=== PATIENT | female | born 1940 | race American Indian/Alaskan Native ===

== ENCOUNTER 2021-01-23 13:29 | Emergency (ER) | payer MEDICARE ==
[2021-01-23] MEDS ORDERED: SODIUM CHLORIDE 0.9% 1000 ML 1,000 ML IV ONE (13:34)
--- NOTE | 2021-01-23 14:03 | Emergency Department Report ---
ED Chest Pain HPI - General Stated Complaint: CHEST PAIN Time Seen by Provider: 01/23/21 13:33 Source: patient, family, EMS Limitations: No Limitations - History of Present Illness Initial Comments: Chief complaint: Chest pain not feeling like herself HPI: This is a 80-year-old female who presents via EMS with chest pain. Patient currently denies chest pain. Daughter called because she was not "feeling like herself". Patient just feels generally unwell. Spoke with daughter per phone at [phone] Daughters tell me that her mother appeared hydrated. She complained of chest pain. She was not eating or drinking. She was too weak to walk. She also had mild irritation and stomach pain. Daughter wanted her to be admitted for observation overnight. PCP Dr. Caroline Brown MD Complaint: chest pain -: Gradual, days(s) (1) Onset: during rest Pain Location: substernal Pain Radiation: none Severity: mild Quality: dull Consistency: now resolved Improves With: nothing Worsens With: nothing - Related Data Allergies Allergy/AdvReac Type Severity Reaction Status Date / Time No Known Allergies Allergy Unverified 01/23/21 14:13 Heart Score - HEART Score History: Slightly suspicious EKG: Normal Age: > 65 Risk factors: 1-2 risk factors Troponin: < normal limit HEART Score: 3 - EKG Read Time Time EKG Completed: 14:00 EKG Read Time: 14:00 ED Review of Systems ROS: Stated complaint: CHEST PAIN Other details as noted in HPI Comment: All other systems reviewed and negative Constitutional: malaise. denies: fever Respiratory: denies: cough, shortness of breath Cardiovascular: denies: chest pain Gastrointestinal: denies: abdominal pain, nausea, vomiting ED Past Medical Hx - Past Medical History Previous Medical History?: Yes ED Physical Exam - General Limitations: No Limitations General appearance: alert, in no apparent distress - Head Head exam: Present: atraumatic, normocephalic - Eye Eye exam: Present: normal appearance - ENT ENT exam: Present: mucous membranes moist - Neck Neck exam: Present: normal inspection, full ROM - Respiratory Respiratory exam: Present: normal lung sounds bilaterally. Absent: respiratory distress, wheezes, rales, rhonchi - Cardiovascular Cardiovascular Exam: Present: regular rate, normal rhythm, normal heart sounds. Absent: systolic murmur, diastolic murmur, rubs, gallop - GI/Abdominal GI/Abdominal exam: Present: soft, normal bowel sounds. Absent: distended, tenderness, guarding, rebound - Extremities Exam Extremities exam: Present: normal inspection - Neurological Exam Neurological exam: Present: alert, oriented X3 - Psychiatric Psychiatric exam: Present: depressed, flat affect - Skin Skin exam: Present: warm, dry, intact, normal color. Absent: rash ED Course Vital Signs 01/23/21 01/23/21 01/23/21 13:44 13:45 14:00 Temperature Pulse Rate 60 60 Respiratory 13 11 L Rate Blood Pressure 142/92 142/92 131/88 Blood Pressure [Right] O2 Sat by Pulse Oximetry 01/23/21 01/23/21 01/23/21 14:14 14:16 14:21 Temperature 98.2 F Pulse Rate 60 60 60 Respiratory 13 12 Rate Blood Pressure 135/88 131/88 Blood Pressure 135/88 [Right] O2 Sat by Pulse 97 98 Oximetry 01/23/21 01/23/21 01/23/21 14:30 14:46 15:00 Temperature Pulse Rate 60 60 60 Respiratory 12 Rate Blood Pressure 131/88 131/88 131/88 Blood Pressure [Right] O2 Sat by Pulse 99 94 97 Oximetry 01/23/21 01/23/21 01/23/21 15:16 15:30 15:45 Temperature Pulse Rate 60 60 60 Respiratory 10 L 9 L 9 L Rate Blood Pressure 131/88 136/94 149/89 Blood Pressure [Right] O2 Sat by Pulse 97 85 99 Oximetry 01/23/21 01/23/21 01/23/21 16:00 16:15 16:30 Temperature Pulse Rate 60 60 60 Respiratory 9 L 10 L 9 L Rate Blood Pressure 157/91 166/90 171/87 Blood Pressure [Right] O2 Sat by Pulse 99 96 99 Oximetry ED Medical Decision Making - Lab Data Result diagrams: 01/23/21 14:13 01/23/21 14:13 - EKG Data -: EKG Interpreted by Me - EKG Data 01/23/21 14:04 EKG obtained 1400 EKG interpreted by me Ventricular pacing rate [address] elevation nonischemic T wave pattern abnormal axis - Radiology Data Radiology results: report reviewed CT abdomen pelvis: Without contrast: No acute findings within the abdomen pelvis, moderate amount of calcific plaque throughout the abdominal aorta, diffuse diverticulosis - Medical Decision Making Ms. Oakley is a 80-year-old female who presents with generalized malaise for the last 2 days. Upon arrival she received 1 L IV fluid therapy. CBC within normal notes. Patient has known chronic kidney disease which is reflective in chemistry. Electrolytes unremarkable. Patient had urinalysis sent to lab. fuel storage technician was unable to find the specimen. However nurse informed me that the urine was clear without gross evidence of infection. Patient is ambulatory. She was able to get out of the bed without assistance. She was able to ambulate to the restroom without assistance. She did not have findings of thrush as was the daughter's concern. No indication of heart failure or acute coronary syndrome. I explained to the daughter that her medical condition did not meet criteria for or observation inpatient admission. [phone] Critical care attestation.: If time is entered above; I have spent that time in minutes in the direct care of this critically ill patient, excluding procedure time. ED Disposition Clinical Impression: Dehydration, GERD (gastroesophageal reflux disease), Hypertensive urgency Disposition: DC-01 TO HOME OR SELFCARE Is pt being admited?: No Does the pt Need Aspirin: No Condition: Stable Instructions: Indigestion, [id number], Dehydration, Elderly, [id number] Referrals: PRIMARY CARE, [Primary Care Provider] - 3-5 Days
--- NOTE | 2021-01-23 14:12 | XRay Report ---
CHEST 1 VIEW 01/23/2021 1:33 PM INDICATION / CLINICAL INFORMATION: Chest Pain. COMPARISON: None available. FINDINGS: SUPPORT DEVICES: A left ICD is in good position. HEART / MEDIASTINUM: Normal size of the cardiac silhouette with mild aortic atherosclerosis. LUNGS / PLEURA: Clear lungs. No significant pleural effusion. No pneumothorax. ADDITIONAL FINDINGS: No significant additional findings. IMPRESSION: 1. No acute abnormality of the chest. Signer Name: Frank Peoples MD Signed: 01/23/2021 2:04 PM Workstation Name: [id number]
[2021-01-23 14:39] LABS: Basophils % (Auto) 0.2 % (0.0-1.8); Hematocrit 36.7 % (30.3-42.9); Hemoglobin 11.5 gm/dl (10.1-14.3); Lymphocytes # (Auto) 1.5 K/mm3 (1.2-5.4); Lymphocytes % (Auto) 30.1 % (13.4-35.0); Mean Corpuscular HGB Conc 31 % (30-34); Mean Corpuscular Volume 93 fl (79-97); Monocytes # (Auto) 0.5 K/mm3 (0.0-0.8); Monocytes % (Auto) 9.2 % (0.0-7.3); Platelet Count 102 K/mm3 (140-440); Red Blood Count 3.93 M/mm3 (3.65-5.03)
[2021-01-23 15:09] LABS: Alanine Aminotransferase 10 units/L (7-56); Albumin 3.8 g/dL (3.9-5); BUN/Creatinine Ratio 17; Blood Urea Nitrogen 32 mg/dL (7-17); Calcium 8.8 mg/dL (8.4-10.2); Hemolysis Index 6
[2021-01-23 16:40] VITALS: BP 171/87
--- NOTE | 2021-01-23 19:28 | Cat Scan Report ---
CT abdomen pelvis wo con INDICATION / CLINICAL INFORMATION: abdominal pain. TECHNIQUE: Axial CT imaging of abdomen and pelvis was obtained without contrast. Coronal and sagittal reformatte d imaging obtained and reviewed. All CT scans at this location are performed using CT dose reduction for ALARA by means of automated exposure control. COMPARISON: None available. FINDINGS: CT abdomen without contrast demonstrates normal appearance of the liver, spleen, pancreas, kidneys, a nd adrenal glands. No intrarenal calculi or hydronephrosis identified. The gallbladder is not visuali zed and presumably has been removed. Moderate amount of calcified plaque is present throughout the ab dominal aorta and common iliac arteries. CT pelvis without contrast does not demonstrate any mass, free fluid, or focal inflammatory change. M ild sigmoid diverticulosis is present throughout the colon, without associated diverticulitis. The re mainder of the GI tract is unremarkable. The appendix is not visualized. No pulmonary or pleural disease noted in either visualized lung bases. Review of osseous structures does not demonstrate any acute significant skeletal abnormality. IMPRESSION: 1. No acute finding within the abdomen or pelvis. 2. Moderate amount of calcific plaque throughout the abdominal aorta and common iliac arteries. 3. Mild diffuse diverticulosis throughout the colon. Signer Name: Marge Koehler MD Signed: 01/23/2021 7:24 PM Workstation Name: [id number]
--- NOTE | 2021-01-24 09:37 | Electrocardiograph Report ---
[facility] Test Date: 2021-01-23 Test Time: 14:00:41 Pat Name: BIANCA GUZMAN Department: Room: Gender: F Battery Service Technician: ITZ : 1940 Requested By: ALINA CALVO Order Number: [id number] Reading MD: Oskar Galeana Measurements Intervals [place] Rate: 60 P: 0 GA: 74 QRS: -82 QRSD: 128 T: 59 QT: 453 QTc: 453 Interpretive Statements A-V dual-paced rhythm with some inhibition No previous ECG available for comparison Electronically Signed On 01-24-2021 9:37:27 EDT by Oskar Galeana
== END 2021-01-23 20:15 | disposition home or self-care (01) ==
LOC: ED 13:29
DX: K21.9 Gastro-esophageal reflux disease without esophagitis (principal); R10.9 Unspecified abdominal pain; E86.0 Dehydration; I16.0 Hypertensive urgency
CPT/HCPCS: 36415; 71045; 74176; 80053; 83880; 84484; 85025; 93005; 96360; 96361; 99285; J7030

== ENCOUNTER 2021-01-28 15:11 | Observation (INO) | payer MEDICARE ==
[2021-01-28 17:24] LABS: Basophils % (Auto) 0.4 % (0.0-1.8); Hematocrit 34.2 % (30.3-42.9); Lymphocytes # (Auto) 1.6 K/mm3 (1.2-5.4); Lymphocytes % (Auto) 29.9 % (13.4-35.0); Mean Corpuscular HGB Conc 32 % (30-34); Mean Corpuscular Volume 91 fl (79-97); Monocytes # (Auto) 0.6 K/mm3 (0.0-0.8); Monocytes % (Auto) 10.9 % (0.0-7.3); Platelet Count 129 K/mm3 (140-440); Red Blood Count 3.76 M/mm3 (3.65-5.03); Red Cell Distribution Width 16.9 % (13.2-15.2)
--- NOTE | 2021-01-28 17:25 | Emergency Department Report ---
ED General Adult HPI - General Chief complaint: Chest Pain Stated complaint: CHEST PAIN Time Seen by Provider: 01/28/21 16:02 Source: patient, EMS Mode of arrival: Stretcher Limitations: Altered Mental Status - History of Present Illness Initial comments: Patient presents to the emergency department via the request of her daughter due to the patient complaining of chest pain or shortness of breath. The patient is confused to why she is here that she cannot answer any questions appropriately. -: unknown Location: chest Severity scale (0 -10): 8 Consistency: constant Improves with: none Worsens with: none Associated Symptoms: denies other symptoms Treatments Prior to Arrival: none - Related Data Allergies Allergy/AdvReac Type Severity Reaction Status Date / Time No Known Allergies Allergy Unverified 01/23/21 14:13 ED Review of Systems ROS: Stated complaint: CHEST PAIN Other details as noted in HPI Comment: All other systems reviewed and negative Constitutional: denies: chills, fever Eyes: denies: eye pain, eye discharge, vision change ENT: denies: ear pain, throat pain Respiratory: denies: cough, shortness of breath, wheezing Cardiovascular: denies: chest pain, palpitations Endocrine: no symptoms reported Gastrointestinal: denies: abdominal pain, nausea, diarrhea Genitourinary: denies: urgency, dysuria, discharge Musculoskeletal: denies: back pain, joint swelling, arthralgia Skin: denies: rash, lesions Neurological: denies: headache, weakness, paresthesias Psychiatric: denies: anxiety, depression Hematological/Lymphatic: denies: easy bleeding, easy bruising ED Past Medical Hx - Past Medical History Hx Hypertension: Yes - Social History Smoking Status: Never Smoker ED Physical Exam - General Limitations: Altered Mental Status General appearance: alert, in no apparent distress - Head Head exam: Present: atraumatic, normocephalic - Eye Eye exam: Present: normal appearance, PERRL, EOMI - ENT ENT exam: Present: mucous membranes moist - Neck Neck exam: Present: normal inspection - Respiratory Respiratory exam: Present: normal lung sounds bilaterally. Absent: respiratory distress - Cardiovascular Cardiovascular Exam: Present: regular rate, normal rhythm. Absent: systolic murmur, diastolic murmur, rubs, gallop - GI/Abdominal GI/Abdominal exam: Present: soft, normal bowel sounds. Absent: distended, tenderness - Extremities Exam Extremities exam: Present: normal inspection - Back Exam Back exam: Present: normal inspection - Neurological Exam Neurological exam: Present: alert, oriented X3, CN II-XII intact. Absent: motor sensory deficit - Psychiatric Psychiatric exam: Present: normal affect, normal mood - Skin Skin exam: Present: warm, dry, intact, normal color. Absent: rash ED Course Vital Signs 01/28/21 01/28/21 01/28/21 15:22 15:30 15:42 Temperature 98.3 F Pulse Rate 60 60 60 Respiratory 13 10 L 16 Rate Blood Pressure 173/93 178/93 Blood Pressure [Right] O2 Sat by Pulse 99 100 99 Oximetry 01/28/21 01/28/21 01/28/21 15:45 15:46 16:00 Temperature Pulse Rate 60 60 60 Respiratory 13 11 L Rate Blood Pressure 169/87 168/90 Blood Pressure [Right] O2 Sat by Pulse 100 100 Oximetry 01/28/21 01/28/21 01/28/21 16:16 16:30 16:46 Temperature Pulse Rate 60 60 60 Respiratory 12 13 14 Rate Blood Pressure 171/87 173/86 167/118 Blood Pressure [Right] O2 Sat by Pulse 99 100 90 Oximetry 01/28/21 01/28/21 01/28/21 17:00 17:13 17:16 Temperature Pulse Rate 60 60 Respiratory 12 16 12 Rate Blood Pressure 156/87 157/88 Blood Pressure [Right] O2 Sat by Pulse 99 100 Oximetry 01/28/21 01/28/21 01/28/21 17:30 17:46 19:00 Temperature 98 F Pulse Rate 60 60 60 Respiratory 13 13 12 Rate Blood Pressure 152/84 159/84 Blood Pressure 159/87 [Right] O2 Sat by Pulse 99 99 100 Oximetry ED Medical Decision Making - Lab Data Result diagrams: 01/28/21 16:56 01/28/21 16:56 Lab Results 01/28/21 01/28/21 01/28/21 Range/Units 16:56 16:56 16:56 WBC 5.4 (4.5-11.0) K/mm3 RBC 3.76 (3.65-5.03) M/mm3 Hgb 11.0 (10.1-14.3) gm/dl Hct 34.2 (30.3-42.9) % MCV 91 (79-97) fl MCH 29 (28-32) pg MCHC 32 (30-34) % RDW 16.9 H (13.2-15.2) % Plt Count 129 L (140-440) K/mm3 Lymph % (Auto) 29.9 (13.4-35.0) % [place] % (Auto) 10.9 H (0.0-7.3) % Eos % (Auto) 0.0 (0.0-4.3) % Baso % (Auto) 0.4 (0.0-1.8) % Lymph # (Auto) 1.6 (1.2-5.4) K/mm3 [place] # (Auto) 0.6 (0.0-0.8) K/mm3 Eos # (Auto) 0.0 (0.0-0.4) K/mm3 Baso # (Auto) 0.0 (0.0-0.1) K/mm3 Seg Neutrophils % 58.8 (40.0-70.0) % Seg Neutrophils # 3.2 (1.8-7.7) K/mm3 PT 14.0 (12.2-14.9) Sec. INR 1.10 (0.87-1.13) APTT 37.7 H (24.2-36.6) Sec. Sodium (137-145) mmol/L Potassium (3.6-5.0) mmol/L Chloride (98-107) mmol/L Carbon Dioxide (22-30) mmol/L Anion Gap mmol/L BUN (7-17) mg/dL Creatinine (0.6-1.2) mg/dL Estimated GFR ml/min BUN/Creatinine Ratio % Glucose (65-100) mg/dL Calcium (8.4-10.2) mg/dL Total Bilirubin (0.1-1.2) mg/dL AST (5-40) units/L ALT (7-56) units/L Alkaline Phosphatase (35-129) units/L Troponin T (0.00-0.029) ng/mL Total Protein (6.3-8.2) g/dL Albumin (3.9-5) g/dL Albumin/Globulin Ratio % Lipase (13-60) units/L HCG, Qual Negative (Negative) Urine Color (Yellow) Urine Turbidity (Clear) Urine pH (5.0-7.0) Ur Specific [place] (1.003-1.030) Urine Protein (Negative) mg/dL Urine Glucose (UA) (Negative) mg/dL Urine Ketones (Negative) mg/dL Urine Blood (Negative) Urine Nitrite (Negative) Urine Bilirubin (Negative) Urine Urobilinogen (<2.0) mg/dL Ur Leukocyte Esterase (Negative) Urine WBC (Auto) (0.0-6.0) /HPF Urine RBC (Auto) (0.0-6.0) /HPF U Epithel Cells (Auto) (0-13.0) /HPF Urine Bacteria (Auto) (Negative) /HPF 01/28/21 01/28/21 Range/Units 16:56 18:18 WBC (4.5-11.0) K/mm3 RBC (3.65-5.03) M/mm3 Hgb (10.1-14.3) gm/dl Hct (30.3-42.9) % MCV (79-97) fl MCH (28-32) pg MCHC (30-34) % RDW (13.2-15.2) % Plt Count (140-440) K/mm3 Lymph % (Auto) (13.4-35.0) % [place] % (Auto) (0.0-7.3) % Eos % (Auto) (0.0-4.3) % Baso % (Auto) (0.0-1.8) % Lymph # (Auto) (1.2-5.4) K/mm3 [place] # (Auto) (0.0-0.8) K/mm3 Eos # (Auto) (0.0-0.4) K/mm3 Baso # (Auto) (0.0-0.1) K/mm3 Seg Neutrophils % (40.0-70.0) % Seg Neutrophils # (1.8-7.7) K/mm3 PT (12.2-14.9) Sec. INR (0.87-1.13) APTT (24.2-36.6) Sec. Sodium 141 (137-145) mmol/L Potassium 4.6 (3.6-5.0) mmol/L Chloride 111.2 H (98-107) mmol/L Carbon Dioxide 23 (22-30) mmol/L Anion Gap 11 mmol/L BUN 27 H (7-17) mg/dL Creatinine 1.7 H (0.6-1.2) mg/dL Estimated GFR 35 ml/min BUN/Creatinine Ratio 16 % Glucose 78 (65-100) mg/dL Calcium 8.5 (8.4-10.2) mg/dL Total Bilirubin 0.30 (0.1-1.2) mg/dL AST 18 (5-40) units/L ALT 9 (7-56) units/L Alkaline Phosphatase 66 (35-129) units/L Troponin T < 0.010 (0.00-0.029) ng/mL Total Protein 7.8 (6.3-8.2) g/dL Albumin 3.4 L (3.9-5) g/dL Albumin/Globulin Ratio 0.8 % Lipase 30 (13-60) units/L HCG, Qual (Negative) Urine Color Yellow (Yellow) Urine Turbidity Clear (Clear) Urine pH 5.0 (5.0-7.0) Ur Specific [place] 1.014 (1.003-1.030) Urine Protein <15 mg/dl (Negative) mg/dL Urine Glucose (UA) Neg (Negative) mg/dL Urine Ketones Neg (Negative) mg/dL Urine Blood Neg (Negative) Urine Nitrite Neg (Negative) Urine Bilirubin Neg (Negative) Urine Urobilinogen < 2.0 (<2.0) mg/dL Ur Leukocyte Esterase Tr (Negative) Urine WBC (Auto) 16.0 H (0.0-6.0) /HPF Urine RBC (Auto) 2.0 (0.0-6.0) /HPF U Epithel Cells (Auto) < 1.0 (0-13.0) /HPF Urine Bacteria (Auto) 1+ (Negative) /HPF - EKG Data -: EKG Interpreted by Ca - EKG Data Interpretation: other (Paced rhythm) - Radiology Data Radiology results: report reviewed - Medical Decision Making Attempt made to contact the patient's daughter x 3 Critical care attestation.: If time is entered above; I have spent that time in minutes in the direct care of this critically ill patient, excluding procedure time. ED Disposition Clinical Impression: Chest pain Disposition: DC09 OP ADMIT IP TO THIS HOSP Is pt being admited?: Yes Does the pt Need Aspirin: Yes Condition: Fair Referrals: PRIMARY CARE, [Primary Care Provider] - 3-5 Days
--- NOTE | 2021-01-28 17:25 | XRay Report ---
CHEST 1 VIEW 01/28/2021 4:14 PM INDICATION / CLINICAL INFORMATION: Chest Pain. COMPARISON: One view of the chest from 01/23/2021. FINDINGS: SUPPORT DEVICES: Unchanged. HEART / MEDIASTINUM: Stable. LUNGS / PLEURA: Clear lungs. No significant pleural effusion. No pneumothorax. ADDITIONAL FINDINGS: No significant additional findings. IMPRESSION: 1. No acute abnormality of the chest. Signer Name: Frank Peoples MD Signed: 01/28/2021 5:21 PM Workstation Name: [id number]
[2021-01-28 17:34] LABS: INR 1.1 (0.87-1.13)
[2021-01-28 17:35] LABS: Partial Thromboplastin Time 37.7 Sec. (24.2-36.6)
[2021-01-28 17:42] LABS: Alanine Aminotransferase 9 units/L (7-56); Albumin 3.4 g/dL (3.9-5); BUN/Creatinine Ratio 16; Blood Urea Nitrogen 27 mg/dL (7-17); Calcium 8.5 mg/dL (8.4-10.2); Hemolysis Index 11
[2021-01-28 18:32] LABS: Bacteria,Urine 1+ /HPF (Negative); Bilirubin,Urine NEG (Negative); Blood,Urine NEG (Negative); Color,Urine Yellow (Yellow); Protein,Urine <15 mg/dL mg/dL (Negative); Urobilinogen,Urine < 2.0 mg/dL (<2.0)
--- NOTE | 2021-01-28 19:48 | History and Physical Report ---
History of Present Illness Date of examination: 01/28/21 Date of admission: 01/28/21 Chief complaint: chest pain Shortness of breath History of present illness: Patient presents to the emergency department via the request of her daughter due to the patient complaining of chest pain or shortness of breath. The patient is confused to why she is here that she cannot answer any questions appropriately. ED work-up shows WBC 5.4, H&H 11.0, sodium 141, potassium 4.6, creatinine is 1.7, serum glucose 78 Lipase level 30, urine WBC elevated, platelet 129. Chest x-ray done no acute finding. Urine culture ordered follow-up with results. Patient seen at bedside. Patient alert oriented x1 and confused. Per patient medical record, patient was brought to the hospital because of complaint of chest pain and shortness of breath. At the time of assessment patient denied chest pain, shortness of breath, and headache. Patient said she had chest pain in the morning but not at the time of this assessment. Sausage Mixer is consulted echocardiogram ordered to rule out [place]. Medications and Allergies Allergies Allergy/AdvReac Type Severity Reaction Status Date / Time No Known Allergies Allergy Unverified 01/23/21 14:13 Review of Systems Constitutional: fatigue, weakness Ears, nose, mouth and throat: no epistaxis Breasts: no discharge Cardiovascular: chest pain Respiratory: shortness of breath Gastrointestinal: no abdominal pain Genitourinary Female: no dyspareunia Rectal: no itching Musculoskeletal: muscle weakness Integumentary: no growths, no bullae Neurological: weakness Psychiatric: anxiety, confusion Hematologic/Lymphatic: no easy bruising, no easy bleeding Allergic/Immunologic: no urticaria, no allergic rhinitis Exam - Constitutional Vitals: Temp Pulse Resp BP Pulse Ox 98 F 60 12 159/87 100 01/28/21 19:00 01/28/21 19:00 01/28/21 19:00 01/28/21 19:00 01/28/21 19:00 General appearance: Present: mild distress, other (frail appearing elderly patient not in acute distress) - EENT Eyes: Present: PERRL ENT: hearing intact, clear oral mucosa - Neck Neck: Present: supple, normal ROM - Respiratory Respiratory effort: normal Respiratory: bilateral: CTA - Cardiovascular Heart Sounds: Present: S1 & S2. Absent: rub, click - Extremities Extremities: pulses symmetrical, No edema Peripheral Pulses: within normal limits - Abdominal General gastrointestinal: Present: soft, non-tender, non-distended, normal bowel sounds Female genitourinary: Present: normal - Integumentary Integumentary: Present: clear, warm, dry - Musculoskeletal Musculoskeletal: gait normal, strength equal bilaterally - Psychiatric Psychiatric: appropriate mood/affect, intact judgment & insight - Neurologic Neurologic: CNII-XII intact, moves all extremities - Allied Health Allied health notes reviewed: nursing HEART Score - HEART Score Troponin: Troponin T < 0.010 ng/mL (0.00-0.029) 01/28/21 16:56 Results - Labs CBC & Chem 7: 01/28/21 16:56 01/28/21 16:56 Labs: Abnormal lab results 01/28/21 01/28/21 01/28/21 Range/Units 16:56 16:56 16:56 RDW 16.9 H (13.2-15.2) % Plt Count 129 L (140-440) K/mm3 [place] % (Auto) 10.9 H (0.0-7.3) % APTT 37.7 H (24.2-36.6) Sec. Chloride 111.2 H (98-107) mmol/L BUN 27 H (7-17) mg/dL Creatinine 1.7 H (0.6-1.2) mg/dL Albumin 3.4 L (3.9-5) g/dL Urine WBC (Auto) (0.0-6.0) /HPF 01/28/21 Range/Units 18:18 RDW (13.2-15.2) % Plt Count (140-440) K/mm3 [place] % (Auto) (0.0-7.3) % APTT (24.2-36.6) Sec. Chloride (98-107) mmol/L BUN (7-17) mg/dL Creatinine (0.6-1.2) mg/dL Albumin (3.9-5) g/dL Urine WBC (Auto) 16.0 H (0.0-6.0) /HPF Assessment and Plan - Patient Problems (1) Chest pain Current Visit: Yes Status: Acute Plan to address problem: Chest x-ray no acute finding Echocardiogram monitor troponin. Troponin negative Stress test ordered (2) GERD (gastroesophageal reflux disease) Current Visit: No Status: Acute Plan to address problem: Resume PPI (3) Hypertensive urgency Current Visit: No Status: Acute Plan to address problem: Monitor blood pressure Resume home blood pressure medicine As needed hydralazine (4) UTI (urinary tract infection) Current Visit: Yes Status: Acute Plan to address problem: Urine culture Start antibiotic with Rocephin. Genital IV hydration with normal saline (5) Thrombocytopenia Current Visit: Yes Status: Acute Plan to address problem: questionable cause H&H within normal limits Monitor platelet level. Will consults heme oncologist if needed. (6) DVT prophylaxis Current Visit: Yes Status: Acute Plan to address problem: SCD
[2021-01-28] MEDS ORDERED: SENNOSIDES 8.6 MG TAB PO PRN (19:57)
[2021-01-28] MEDS ORDERED: ALUM-MAG HYDROXIDE-SIMETHICONE 200-200-20MG/5ML ORAL LIQD 30 ML PO PRN (19:57)
[2021-01-28] MEDS ORDERED: ONDANSETRON 4 MG/2 ML INJ IV PRN (19:57)
[2021-01-28] MEDS ORDERED: MAGNESIUM HYDROXIDE (MOM) ORAL LIQD UDC PO PRN (19:57)
[2021-01-28] MEDS ORDERED: SODIUM CHLORIDE 0.9% 1000 ML 1,000 ML IV SCH (20:00)
[2021-01-28] MEDS ORDERED: traZODone 50 MG TAB PO PRN (20:19)
[2021-01-28] MEDS: ALPRAZolam 0.25 MG TAB PO PRN (21:40)
[2021-01-28] MEDS ORDERED: FAMOTIDINE 20 MG TAB PO SCH (22:00)
[2021-01-28] MEDS ORDERED: cefTRIAXone/NS 1 GM/50 ML 1 GM/50 ML BAG IV SCH (22:00)
[2021-01-29] MEDS: hydrALAZINE 20 MG/1 ML INJ IV PRN ×2 (00:53→07:50)
[2021-01-29] MEDS: ACETAMINOPHEN 325 MG TAB PO PRN ×3 (07:47→17:59)
--- NOTE | 2021-01-29 08:52 | Progress Note ---
Hospitalist Physical - Constitutional Vitals: Temp Pulse Resp BP Pulse Ox 99.6 F 63 18 185/98 98 01/29/21 07:22 01/29/21 07:22 01/29/21 07:22 01/29/21 07:50 01/29/21 07:22 General appearance: Present: mild distress, other (frail appearing elderly patient not in acute distress) HEART Score - HEART Score History: Slightly suspicious EKG: Non-specific Age: > 65 Risk factors: 1-2 risk factors Troponin: Troponin T < 0.010 ng/mL (0.00-0.029) 01/28/21 19:35 Troponin: < normal limit HEART Score: 4 Results - Labs CBC & Chem 7: 01/28/21 16:56 01/28/21 16:56 Labs: Laboratory Last Values WBC 5.4 K/mm3 (4.5-11.0) 01/28/21 16:56 RBC 3.76 M/mm3 (3.65-5.03) 01/28/21 16:56 Hgb 11.0 gm/dl (10.1-14.3) 01/28/21 16:56 Hct 34.2 % (30.3-42.9) 01/28/21 16:56 MCV 91 fl (79-97) 01/28/21 16:56 MCH 29 pg (28-32) 01/28/21 16:56 MCHC 32 % (30-34) 01/28/21 16:56 RDW 16.9 % (13.2-15.2) H 01/28/21 16:56 Plt Count 129 K/mm3 (140-440) L 01/28/21 16:56 Lymph % (Auto) 29.9 % (13.4-35.0) 01/28/21 16:56 [place] % (Auto) 10.9 % (0.0-7.3) H 01/28/21 16:56 Eos % (Auto) 0.0 % (0.0-4.3) 01/28/21 16:56 Baso % (Auto) 0.4 % (0.0-1.8) 01/28/21 16:56 Lymph # (Auto) 1.6 K/mm3 (1.2-5.4) 01/28/21 16:56 [place] # (Auto) 0.6 K/mm3 (0.0-0.8) 01/28/21 16:56 Eos # (Auto) 0.0 K/mm3 (0.0-0.4) 01/28/21 16:56 Baso # (Auto) 0.0 K/mm3 (0.0-0.1) 01/28/21 16:56 Seg Neutrophils % 58.8 % (40.0-70.0) 01/28/21 16:56 Seg Neutrophils # 3.2 K/mm3 (1.8-7.7) 01/28/21 16:56 PT 14.0 Sec. (12.2-14.9) 01/28/21 16:56 INR 1.10 (0.87-1.13) 01/28/21 16:56 APTT 37.7 Sec. (24.2-36.6) H 01/28/21 16:56 Sodium 141 mmol/L (137-145) 01/28/21 16:56 Potassium 4.6 mmol/L (3.6-5.0) 01/28/21 16:56 Chloride 111.2 mmol/L (98-107) H 01/28/21 16:56 Carbon Dioxide 23 mmol/L (22-30) 01/28/21 16:56 Anion Gap 11 mmol/L 01/28/21 16:56 BUN 27 mg/dL (7-17) H 01/28/21 16:56 Creatinine 1.7 mg/dL (0.6-1.2) H 01/28/21 16:56 Estimated GFR 35 ml/min 01/28/21 16:56 BUN/Creatinine Ratio 16 % 01/28/21 16:56 Glucose 78 mg/dL (65-100) 01/28/21 16:56 Calcium 8.5 mg/dL (8.4-10.2) 01/28/21 16:56 Total Bilirubin 0.30 mg/dL (0.1-1.2) 01/28/21 16:56 AST 18 units/L (5-40) 01/28/21 16:56 ALT 9 units/L (7-56) 01/28/21 16:56 Alkaline Phosphatase 66 units/L (35-129) 01/28/21 16:56 Troponin T < 0.010 ng/mL (0.00-0.029) 01/28/21 19:35 Total Protein 7.8 g/dL (6.3-8.2) 01/28/21 16:56 Albumin 3.4 g/dL (3.9-5) L 01/28/21 16:56 Albumin/Globulin Ratio 0.8 % 01/28/21 16:56 Lipase 30 units/L (13-60) 01/28/21 16:56 HCG, Qual Negative (Negative) 01/28/21 16:56 Urine Color Yellow (Yellow) 01/28/21 18:18 Urine Turbidity Clear (Clear) 01/28/21 18:18 Urine pH 5.0 (5.0-7.0) 01/28/21 18:18 Ur Specific [place] 1.014 (1.003-1.030) 01/28/21 18:18 Urine Protein <15 mg/dl mg/dL (Negative) 01/28/21 18:18 Urine Glucose (UA) Neg mg/dL (Negative) 01/28/21 18:18 Urine Ketones Neg mg/dL (Negative) 01/28/21 18:18 Urine Blood Neg (Negative) 01/28/21 18:18 Urine Nitrite Neg (Negative) 01/28/21 18:18 Urine Bilirubin Neg (Negative) 01/28/21 18:18 Urine Urobilinogen < 2.0 mg/dL (<2.0) 01/28/21 18:18 Ur Leukocyte Esterase Tr (Negative) 01/28/21 18:18 Urine WBC (Auto) 16.0 /HPF (0.0-6.0) H 01/28/21 18:18 Urine RBC (Auto) 2.0 /HPF (0.0-6.0) 01/28/21 18:18 U Epithel Cells (Auto) < 1.0 /HPF (0-13.0) 01/28/21 18:18 Urine Bacteria (Auto) 1+ /HPF (Negative) 01/28/21 18:18 Blood Type A NEGATIVE 01/28/21 20:53 [place]/IV: Voiding Method Bedside Commode Active Medications - Current Medications Current Medications: Generic Name Dose Route Start Last Admin Trade Name Freq PRN Reason Stop Dose Admin Acetaminophen 650 mg 01/28/21 19:57 01/29/21 07:47 Acetaminophen 325 Mg Tab PO 650 mg Q4H PRN Administration Pain MILD(1-3)/Fever >100.5/JUNG Al Hydrox/Mg Hydrox/Simethicone 30 ml 01/28/21 19:57 Alum-Mag Hydroxide-Simethicone [phone]/5ml Oral Liqd 30 Ml PO Q4H PRN Indigestion Alprazolam 0.25 mg 01/28/21 20:19 01/28/21 21:40 Alprazolam 0.25 Mg Tab PO 0.25 mg Q8H PRN Administration Anxiety Amlodipine Besylate 10 mg 01/29/21 10:00 Amlodipine 10 Mg Tab PO DAILY JAIME Famotidine 20 mg 01/28/21 22:00 01/28/21 21:40 Famotidine 20 Mg Tab PO 20 mg BID JAIME Administration Hydralazine HCl 5 mg 01/28/21 20:03 01/29/21 07:50 Hydralazine 20 Mg/1 Ml Inj IV 5 mg Q4HR PRN Administration Hypertension Sodium Chloride 1,000 mls @ 75 mls/hr 01/28/21 20:00 01/28/21 20:55 Nacl 0.9% 1000 Ml IV 75 mls/hr DIRECT JAIME Administration Ceftriaxone Sodium 1 gm in 50 mls @ 100 mls/hr 01/28/21 22:00 01/28/21 21:40 Rocephin/Ns 1 Gm/50 Ml IV 01/30/21 22:29 100 mls/hr Q24H JAIME Administration Protocol Magnesium Hydroxide 30 ml 01/28/21 19:57 Magnesium Hydroxide (Mom) Oral Liqd Udc PO Q4H PRN Constipation Ondansetron HCl 4 mg 01/28/21 19:57 Ondansetron 4 Mg/2 Ml Inj IV Q8H PRN Nausea And Vomiting Senna 8.6 mg 01/28/21 19:57 Sennosides 8.6 Mg Tab PO Q12HR PRN Constipation Trazodone HCl 50 mg 01/28/21 20:19 01/29/21 00:55 Trazodone 50 Mg Tab PO 50 mg QHS PRN Administration Insomnia
[2021-01-29] MEDS ORDERED: REGADENOSON 0.4 MG/5 ML INJ IV ONE ×2 (09:17→09:37)
[2021-01-29] MEDS ORDERED: FAMOTIDINE 20 MG TAB PO SCH (10:00)
[2021-01-29] MEDS ORDERED: amLODIPine 10 MG TAB PO SCH (10:00)
[2021-01-29] MEDS: ALPRAZolam 0.25 MG TAB PO PRN (13:44)
--- NOTE | 2021-01-29 14:18 | Discharge Summary ---
Providers - Providers Date of Admission: 01/28/21 19:36 Date of discharge: 01/29/21 Attending physician: CHRISTIANO SMALLS Primary care physician: [employer] Hospitalization Condition: Fair Hospital course: Patient presents to the emergency department via the request of her daughter due to the patient complaining of chest pain or shortness of breath. The patient is confused to why she is here that she cannot answer any questions appropriately. ED work-up shows WBC 5.4, H&H 11.0, sodium 141, potassium 4.6, creatinine is 1.7, serum glucose 78 Lipase level 30, urine WBC elevated, platelet 129. Chest x-ray done no acute finding. Urine culture ordered follow-up with results. Patient seen at bedside. Patient alert oriented x1 and confused. Per patient medical record, patient was brought to the hospital because of complaint of chest pain and shortness of breath. At the time of assessment patient denied chest pain, shortness of breath, and headache. Patient said she had chest pain in the morning but not at the time of this assessment. Hospital course Patient admitted for stress test rule out. Patient had a stress test that showed no reversible ischemia. Patient will be discharged to follow-up with her PCP. She was started on IV antibiotics in the ER for possible UTI. Reviewed urinalysis-patient does not have UTI so we will discontinue antibiotics. Patient is stable for discharge today. Final Discharge Diagnosis (Prints w/discharge instructions): Chest pain-likely musculoskeletal Time spent for discharge: 20 minutes Core Measure Documentation - Palliative Care Palliative Care/ Comfort Measures: Not Applicable - Core Measures Any of the following diagnoses?: none Exam - Physical Exam Narrative exam: VITAL SIGNS: Reviewed. GENERAL: Awake HEAD: No signs of head trauma. EYES: Pupils are equal. Extraocular motions intact. MOUTH: Oropharynx is normal. NECK: No adenopathy, no JVD. CHEST: Chest with diminished breath sounds bilaterally. No wheezes, rales, or rhonchi. CARDIAC: normal S1 and S2, without murmurs, gallops, or rubs. ABDOMEN: Soft, non tender and non distended. No rebound or guarding, and no masses palpated. Bowel Sounds normal. MUSCULOSKELETAL: No edema NEUROLOGIC EXAM: Alert and oriented x3. No focal neurologic deficits SKIN: No obvious lesions - Constitutional Vitals: Temp Pulse Resp BP Pulse Ox 99.6 F 71 18 159/84 98 01/29/21 07:22 01/29/21 13:44 01/29/21 07:22 01/29/21 13:44 01/29/21 07:22 Plan Diet: low salt Additional Instructions: Follow-up with PCP 1 to 2 weeks Follow up with: PRIMARY CARE, [Primary Care Provider] - 3-5 Days Prescriptions: amLODIPine 10 mg PO DAILY #30 tablet hydrALAZINE [Apresoline TAB] 25 mg PO Q8HR #90 tab
[2021-01-29 17:15] VITALS: BP 145/81
--- NOTE | 2021-01-30 10:06 | Nuclear Medicine Report ---
APPROVED REPORT Exam: Nuclear Stress Test Indication: Chest pain BMI: 0 Stress Test Details Stress Test: Pharmacologic stress testing performed using 0.4 mg of regadenoson per 5 mL given IV over 10 seconds. HR Resting HR: 63 bpmMax Heart Rate (APMHR): 138 bpm Max HR Achieved: 89 bpmTarget HR (85% APMHR): 117 bpm % of APMHR: 64 HR response to stress: Normal HR response to stress BP Resting BP: 182/85 mmHg Max BP: 182/86 mmHg Recovery BP: 157/82 mmHg BP response to stress: Normal blood pressure response to stress. ECG Resting ECG: Sinus Rhythm Stress ECG: Sinus Rhythm Clinical Reason for Termination: Completed protocol NM EXAM: Myocardial Perfusion REST/STRESS Imaging Protocol: Rest TI-201/Stress Tc-99m Resting Data Rest SPECT myocardial perfusion imaging was performed in supine position 45 minutes following the intravenous injection of 10 mCi of Tc-99m Myoview. Time of rest injection: 0900 Pharmacologic Stress Pharmacologic stress test was performed by injecting Regadenoson 0.4 mg IV push followed by the intravenous injection of 28 mCi of Tc-99m Myoview. Time of stress injection: 1200 Study Data TID = 0.76. Perfusion Nuclear Conclusion ECG Findings: negative for ischemia Clinical Findings: negative for ischemia Nuclear Findings: negative for ischemia Exercise Capacity: not assessed Left Ventricular Function: normal Normal study. No scintigraphic evidence for myocardial ischemia or scar. Normal left ventricular size and function with no regional wall motion abnormalities.
--- NOTE | 2021-01-31 10:35 | Electrocardiograph Report ---
[facility] Test Date: 2021-01-28 Test Time: 15:29:26 Pat Name: BIANCA GUZMAN Department: Room: A470 1 Gender: F Gas Operator: CHANDA : 1940 Requested By: VICKEY APN Order Number: [id number] Reading MD: Pricilla Espitia Measurements Intervals [place] Rate: 60 P: 0 NM: 193 QRS: -82 QRSD: 130 T: 46 QT: 437 QTc: 437 Interpretive Statements A-V dual-paced rhythm with some inhibition Compared to ECG 01/23/2021 14:00:41 No significant changes Electronically Signed On 01-31-2021 10:34:37 EDT by Pricilla Espitia
== END 2021-01-29 18:54 | disposition home or self-care (01) ==
LOC: ED 15:11 → 3A 19:36 → 4A 21:06
PROVIDERS: ADMIT Internal Medicine; ATTEND Internal Medicine
DX: I16.0 Hypertensive urgency (principal); R07.89 Other chest pain; K21.9 Gastro-esophageal reflux disease without esophagitis; D69.6 Thrombocytopenia, unspecified; N39.0 Urinary tract infection, site not specified; R41.82 Altered mental status, unspecified
CPT/HCPCS: 36415; 71045; 78452; 80053; 81001; 83690; 84484; 84703; 85025; 85610; 85730; 86850; 86900; 86901; 87086; 93005; 93017; 93306; 96361; 96365; 96375; 96376; 99285; A9502; G0378; J0360; J0696; J2785; J7030